=== PATIENT | male | born 1970 | race Caucasian/White ===

== ENCOUNTER 2020-03-18 10:19 | Observation (INO) | payer OTHER, SELFPAY ==
[2020-03-18] VITALS (9 sets, daily range): BP systolic 96–132; BP diastolic 63–92; PULSE 78–95; RESP 15–22; TEMP 36.4–36.8; O2SAT 90–96; BMI 28.8
--- NOTE | 2020-03-18 10:39 | XRR_ITS ---
PROCEDURE INFORMATION: Exam: XR Chest, 1 View Exam date and time: 03/18/2020 11:03 AM Age: 49 years old Clinical indication: Other: Chest tightness; Additional info: Chest pain TECHNIQUE: Imaging protocol: XR of the chest Views: 1 view. COMPARISON: No relevant prior studies available. FINDINGS: Lungs: Unremarkable. No consolidation. Pleural space: Unremarkable. No pleural effusion. No pneumothorax. Heart/Mediastinum: Unremarkable. No cardiomegaly. Bones/joints: Unremarkable. XR/XR chest 1V portable [id number] IMPRESSION: No acute findings.
[2020-03-18] MEDS: nitroglycerin 1 gm/inch oint Pkt 0.5 INCH TOPICAL (10:55)
[2020-03-18] MEDS: aspirin 81 mg Chew Tablet 324 MG PO (10:55)
[2020-03-18 10:59] LABS: Basophils # 0.1 10^3/uL (0.0-0.1); Basophils % 1.3 %; Eosinophils # 0.1 10^3/uL (0.0-0.8); Hematocrit 44.3 % (42.0-52.0); Hemoglobin 14.8 g/dL (11.7-16.6); Lymphocytes # 1.5 10^3/uL (0.8-4.8); Mean Corpuscular HGB Conc 33.4 g/dL (30.0-36.0); Mean Corpuscular Hemoglobin 31.2 pg (28.0-34.0); Mean Corpuscular Volume 93.3 fL (80-94); Mean Platelet Volume 10.3 fL (7.4-10.4); Monocytes # 0.5 10^3/uL (0.2-0.9); Monocytes % 9.1 %; Neutrophils # 3.4 10^3/uL (1.8-7.7); Neutrophils % 60.4 %; Nucleated Red Blood Cells % 0 %; Platelet Count 294 10^3/cmm (130-400); Red Blood Count 4.75 10^6/uL (4.1-5.3); Red Cell Distribution Width 12.2 % (12.1-15.1); White Blood Count 5.6 10^3/uL (4.0-10.0)
[2020-03-18 11:19] LABS: Alanine Aminotransferase 38 U/L (0-41); Albumin Level 4.4 g/dL (3.5-5.2); Alkaline Phosphatase 65 IU/L (40-130); Anion Gap 17.2 (5-19); Aspartate Amino Transferase 17 U/L (0-40); Blood Urea Nitrogen 21 mg/dL (6-20); Calcium 9.5 mg/dL (8.5-10.5); Carbon Dioxide 23 mmol/L (22-29); Chloride 102 mmol/L (98-107); Glomerular Filtration Rate 120.4 mL/min (90-130); Glucose 377 mg/dL (65-115); Osmolality Calculated 298 mOsm/kg (285-295); Potassium 4.2 mmol/L (3.5-5.1); Sodium 138 mmol/L (136-145); Total Bilirubin 0.3 mg/dL (0.15-1.2); Total Protein 6.4 g/dL (6.6-8.7)
[2020-03-18 11:24] LABS: Troponin(5th) Baseline 6 ng/L (0-15)
--- NOTE | 2020-03-18 11:52 | ED_ITS ---
HPI - Chest Pain General: Chief Complaint: Chest Pain Stated Complaint: chest heaviness Time Seen by Provider: 03/18/20 10:38 History of Present Illness: HPI narrative: Pleasant 49-year-old male who comes in complaining of an episode of chest heaviness or pressure. He was extremely diaphoretic and the pain radiated into his left shoulder lasted for about 4 to 5 minutes he was breathing rapidly at the time he states he did feel little bit anxious. He states that at the worst the pain was a 7-8 of 10 when he arrived here to 2-3 out of 10. He has been having these episodes previously however over the last 6 months when he walks for a period of time at times he will get rather severe chest heaviness to the point that he has to stop what he is doing and rest and it will resolve in a few minutes he is not had any work-up for it unfortunately he is a diabetic he is not been taking aspirin. He has no known coronary artery disease. He denies any recent illness or cough or upper respiratory symptoms. Associated symptoms: Deny abdominal pain, dyspnea, fever(s), nausea or vomiting Review of Systems Const: Denies: fever(s), chills, body aches, change in appetite, fatigue or malaise ENMT: Denies: throat pain, ear or mastoid pain, nasal discharge or nasal congestion Card: Reports: chest pain and dyspnea on exertion; Denies: edema or orthopnea Resp: Denies: dyspnea, productive cough or non-productive cough GI: Denies: abdominal pain, nausea, vomiting, hematemesis, coffee ground emesis, diarrhea, constipation, bloating, hematochezia or melena : Denies: flank pain, dysuria, urinary frequency or urinary urgency Skin/Breast: Denies: rash or pruritus [facility] ED PFSH: Medical History Diabetes -A1c-10.5 -continue Lantus, ISS, hypoglycemia precautions -Accucheks -on consistent carb diet Hyperlipidemia -noted lipid panel -continue statin Surgical History History of appendectomy Family History Grandfather CAD (coronary artery disease) Stroke Mother Cancer colon cancer Social History Smoking and tobacco status: never smoked Alcohol intake: never Household members: family Marital status: Current occupational status: employed Current occupation: [employer] Physical Exam Const: COMMON NORMALS: no acute distress GENERAL APPEARANCE: cooperative and comfortable ORIENTATION/CONSCIOUSNESS: Yes awake, Yes oriented to person, Yes oriented to place and Yes oriented to time HENMT: COMMON NORMALS: normocephalic, atraumatic, hearing grossly normal bilaterally, external ears normal, EAC's normal, TM's normal bilaterally, Normal nasal mucous membranes and turbinates present, moist oral mucous membranes and oropharynx normal HEAD & SCALP: normocephalic and atraumatic NOSE: Normal nasal mucous membranes and turbinates present EXTERNAL EAR: Yes external ears normal EXTERNAL AUDITORY CANAL: EAC's normal TYMPANIC MEMBRANE: TM's normal bilaterally Eye: COMMON NORMALS: Equal, round and reactive pupils present, EOMs intact bilaterally, conjunctivae normal and no scleral icterus CONJUNCTIVA: Yes conjunctivae normal PUPIL: Yes Equal, round and reactive pupils present Neck/C-Spine: COMMON NORMALS: full ROM, no lymphadenopathy, supple and no JVD Lymph: LYMPHATIC: no lymphadenopathy noted and no lymphedema noted Resp: COMMON NORMALS: normal respiratory effort, No retractions, No use of accessory muscles and clear to auscultation bilaterally AUSCULTATION: clear to auscultation bilaterally Cardio: COMMON NORMALS: no JVD, regular rate, regular rhythm and No murmurs present (Cardio) RATE: regular rate RHYTHM: regular rhythm GI: COMMON NORMALS: Soft to palpation and No hepatosplenomegaly present AUSCULTATION: Yes normoactive bowel sounds PALPATION: Yes Soft to palpation, No Tenderness to palpation present (GI), No Guarding due to palpation present (GI) and Yes No hepatosplenomegaly present Extremity: COMMON NORMALS: normal to inspection, capillary refill normal, no clubbing, cyanosis or edema, no calf tenderness and no pedal edema Neuro: SENSORIUM/ORIENTATION: Yes oriented to person, Yes oriented to place and Yes oriented to time Skin: COMMON NORMALS: no rashes or lesions noted GENERAL SKIN EXAM: no rashes or lesions noted Course Vital Signs: Vital signs: Vital Signs Temperature 98.1 F 03/19/20 13:15 Pulse Rate 91 03/19/20 13:15 Respiratory Rate 14 03/19/20 13:15 Blood Pressure 102/68 03/19/20 13:15 Pulse Oximetry 96 03/19/20 13:15 MDM - Chest Pain Lab Data: Labs: Lab Results 03/18/20 03/18/20 03/18/20 Range/Units 10:50 10:50 10:50 WBC 5.6 (4.0-10.0) 10^3/ uL RBC 4.75 (4.1-5.3) 10^6/u L Hgb 14.8 (11.7-16.6) g/dL Hct 44.3 (42.0-52.0) % MCV 93.3 (80-94) fL MCH 31.2 (28.0-34.0) pg MCHC 33.4 (30.0-36.0) g/dL RDW 12.2 (12.1-15.1) % Plt Count 294 (130-400) 10^3/c mm MPV 10.3 (7.4-10.4) fL Neut % (Auto) 60.4 % Lymph % (Auto) 27.0 % Morrison % (Auto) 9.1 % Eos % (Auto) 2.0 % Baso % (Auto) 1.3 % Neut # (Auto) 3.4 (1.8-7.7) 10^3/u L Lymph # (Auto) 1.5 (0.8-4.8) 10^3/u L Morrison # (Auto) 0.5 (0.2-0.9) 10^3/u L Eos # (Auto) 0.1 (0.0-0.8) 10^3/u L Baso # (Auto) 0.1 (0.0-0.1) 10^3/u L Nucleated RBC % (a uto) 0 % Nucleated RBCs # 0.0 /100WBC Sodium 138 (136-145) mmol/L Potassium 4.2 (3.5-5.1) mmol/L Chloride 102 (98-107) mmol/L Carbon Dioxide 23 (22-29) mmol/L Anion Gap 17.2 (5-19) BUN 21 H (6-20) mg/dL Creatinine 0.7 (0.7-1.2) mg/dL GFR Calculation 120.4 (90-130) mL/min Glucose 377 H (65-115) mg/dL Calculated Osmolal ity 298 H (285-295) mOsm/k g Calcium 9.5 (8.5-10.5) mg/dL Total Bilirubin 0.3 (0.15-1.2) mg/dL AST 17 (0-40) U/L ALT 38 (0-41) U/L Alkaline Phosphata se 65 (40-130) IU/L Troponin T Baselin e 6 (0-15) ng/L Total Protein 6.4 L (6.6-8.7) g/dL Albumin 4.4 (3.5-5.2) g/dL Globulin 2.0 (1.3-4.6) g/dL Discharge Plan Discharge Patient Disposition: Admitted As Inpatient Admit Provider: Lizz Gonzalez Clinical Impression: Unstable angina, Diabetes, Hyperlipidemia, Chest pain Condition: Stable Discharge Orders: Discharge Order (Routine); Ordered 03/19/20 Ordered By: Lizz Gonzalez Discharge Diet: Diabetic Discharge Activity: Increase activity as tolerated Interventions: ED Discharge Assessment Last Done: 03/18/20 14:58 ED Charges Last Done: 03/18/20 14:58 Discharge Date/Time: 03/18/20 15:10 Coding Level of Care Code ED Deck Builder for Chg Fwd Exam Comprehensive
[2020-03-18] MEDS: enoxaparin 100 mg/mL Syringe SUBCUT ×2 (12:34→23:07)
--- NOTE | 2020-03-18 12:39 | ECG_ITS ---
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 Measurements Intervals [place] Rate: 89 P: 46 NE: 159 QRS: 32 QRSD: 85 T: 33 QT: 351 QTc: 427 Interpretive Statements SINUS RHYTHM Compared to ECG 03/18/2020 10:34:59 T-wave abnormality no longer present Electronically Signed On 03-19-2020 0:10:29 CDT by Juanjo Montero M.D. [email or web address].[email or web address] [email or web address]/store/NU/[id number] f
[2020-03-18 13:20] LABS: Troponin 5 2HR Delta 0 ABS# (0-10)
--- NOTE | 2020-03-18 13:39 | P.HP_ITS ---
Providers/Chief Complaint Admitting Physician: Lizz Gonzalez MD Primary Care Provider: Dr. Damien Brian Chief Complaint: chest heaviness History of Present Illness Percy Saldana is a 49 year old male with PMHx of IDDM type II, Hyperlipidemia; presents with c/o substernal chest pain that started acutely while he was driving out to one of the [facility] clinics. He describes an episode of substernal chest pressure, weight-like, that radiated to his left shoulder, with associated diaphoresis and a mild headache. He decided to drive to the ED for further evaluation and by the time he got here, pain had decreased and was resolved once NTG paste was applied. He details a hx over the past 4-5 months of intermittent chest pressure and discomfort with decreasing exertion like when he is walking to his mailbox, he has to stop partway and catch his breath before returning to the house. The episodes always happen with exertion, but not always with the same amount of exertion or activity. He states that he typically is hyperglycemic and denies any hypoglycemic episodes, is insulin-dependent, no recent A1c on record. Denies prior history of cardiac symptoms other than what is already detailed so has not had previous cardiac work-up including echo. He is a non-smoker, no history of alcohol use, noted family history of CAD and CVA in his grandparents. He is resting comfortably during my assessment in the ER. Work-up so far shows a normal CBC, normal chemistry other than noted hyperglycemia with a blood sugar of 377, BUN of 21 with a creatinine of 0.7, normal LFTs, negative troponin x1. Chest x-ray appears unremarkable. So far he has received full dose aspirin 325 mg, therapeutic dose of Lovenox and has Nitropaste in place. Vital signs are currently stable. In light of his symptoms and high suspicion for unstable angina I have requested cardiology evaluation and patient is being admitted for further work-up and management. Review of Systems Const: Reports: diaphoresis; Denies: fever(s), chills, change in appetite or fatigue Eyes: Denies: change in vision ENMT: Denies: odynophagia Card: Reports: chest pain (radiation to L shoulder) and dyspnea on exertion; Denies: palpitations, edema, swelling of feet/ankles, lightheadedness, syncope or pre-syncope Resp: Reports: other (hyperventilation); Denies: dyspnea, productive cough or non-productive cough GI: Denies: abdominal pain, nausea, vomiting, hematemesis, diarrhea or hematochezia : Denies: dysuria, urinary frequency or hematuria Musc: Denies: back pain Skin/Breast: Denies: rash Neuro: Denies: numbness in extremities, weakness in extremities, difficulty walking or dizziness Psych: Denies: anxiety Medications/Allergies Home Medications Medication Instructions Recorded Confirmed Last Taken Type atorvastatin 40 mg PO DAILY 03/18/20 03/18/20 03/17/20 History canagliflozin [Invokana] 300 mg PO DAILY 03/18/20 03/18/20 03/17/20 History insulin glargine [Lantus Solostar 25 unit SUBCUT DAILY 03/18/20 03/18/20 03/17/20 History U-100 Insulin] Allergies Allergy/AdvReac Type Severity Reaction Status Date / Time No Known Allergies Allergy Verified 03/18/20 10:31 PFSH Acute PFSH: Medical History Diabetes Hyperlipidemia Surgical History History of appendectomy Family History Grandfather CAD (coronary artery disease) Stroke Mother Cancer colon cancer Social History (Updated 03/18/20 @ 13:49 by Lizz Gonzalez MD) Smoking and tobacco status: never smoked Alcohol intake: never Substance/Drug Use: never Household members: family Marital status: Current occupational status: employed Current occupation: [employer] [place] Vitals/I&O/Wt Last Vital Signs Temp 98.2 F 03/18/20 10:30 Pulse 82 03/18/20 12:02 Resp 18 03/18/20 12:02 BP 112/92 03/18/20 12:02 Pulse Ox 94 03/18/20 12:02 Weight last 48 hrs Weight 93.894 kg Physical Exam Const: COMMON NORMALS: no acute distress, patient oriented x3 and alert GENERAL APPEARANCE: cooperative and comfortable ORIENTATION/CONSCIOUSNESS: Yes awake HENMT: COMMON NORMALS: normocephalic, atraumatic, hearing grossly normal bilaterally and moist oral mucous membranes HEAD & SCALP: normocephalic and atraumatic Eye: COMMON NORMALS: Equal, round and reactive pupils present, EOMs intact bilaterally and conjunctivae normal CONJUNCTIVA: Yes conjunctivae normal PUPIL: Yes Equal, round and reactive pupils present Neck/C-Spine: COMMON NORMALS: full ROM GENERAL: Yes normal visual inspection and Yes trachea midline Chest: COMMONS NORMALS: normal palpation of entire chest wall CHEST: Yes Symmetrical chest wall rise Resp: COMMON NORMALS: normal respiratory effort, No retractions, No use of accessory muscles and clear to auscultation bilaterally EFFORT & INSPECTION: Yes able to speak in complete sentences, Yes symmetric chest movement and No tachypneic AUSCULTATION: clear to auscultation bilaterally OTHER: -on RA Cardio: COMMON NORMALS: regular rate, regular rhythm, S1 normal heart sound present, S2 normal heart sound present and No murmurs present (Cardio) RATE: regular rate RHYTHM: regular rhythm HEART SOUNDS: S1 normal heart sound present and S2 normal heart sound present GI: COMMON NORMALS: Normal to inspection, nondistended, normoactive bowel sounds present, Soft to palpation and non-tender INSPECTION: Yes central obesity PALPATION: Yes Soft to palpation Back/Pelvis: COMMON NORMALS: thoracic and lumbar spine normal to inspection Extremity: COMMON NORMALS: normal to inspection, full ROM, no clubbing, cyanosis or edema and no pedal edema Neuro: COMMON NORMALS: patient oriented x3, moves all extremities, no focal motor deficits and no sensory deficits noted Psych: COMMON NORMALS: mental status grossly normal, Normal thought process present, cooperative, normal affect and speech normal SPEECH: Yes normal speech THOUGHT PROCESS: Normal thought process present Skin: COMMON NORMALS: no rashes or lesions noted, no jaundice, no petechiae and no mottling GENERAL SKIN EXAM: no rashes or lesions noted Data : 03/18/20 10:50 03/18/20 10:50 A&P Assessment and plan (1) Unstable angina: -from history provided, seems more consistent with unstable angina (previously had intermittent chest pain with exertion but earlier today had typical substernal chest pain at rest with associated diaphoresis and radiation to the left shoulder) -Risk factors for ACS include diabetes, hyperlipidemia, positive family history -serial troponins, ECGs -telemetry monitoring -MARIAH; already received ASA 325 mg, therapeutic dose of Lovenox and NTG paste; continue this for now -VSS; continue to monitor vital signs -Cardiology consult requested -check A1c, lipid panel, TSH -resume statin -CXR unremarkable -no prior cardiac workup; order baseline Echo Status: Acute (2) Borderline hypertension: -VSS; continue to monitor Status: Acute (3) Hyperlipidemia: -check lipid panel -resume statin Status: Chronic Qualifiers: Hyperlipidemia type: unspecified Qualified Code(s): E78.5 - Hyperlipidemia, unspecified (4) Diabetes: -check A1c -resume Lantus, add ISS, hypoglycemia precautions -Accucheks -once PO appropriate, start on consistent carb diet Status: Acute Qualifiers: Diabetes mellitus type: type 2 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 Time Spent in Patient Care: Greater than 35 minutes (>than 50% of time spe nt in counselling and/or direct pt care on unit) . Coding Level of Care Code Acute Life Teacher for Aprilg Fwd Diagnoses Unstable angina I20.0 Borderline hypertension R03.0 Hyperlipidemia E78.5 Hyperlipidemia type: unspecified Diabetes E11.9; Z79.4 Diabetes mellitus type: type 2 Diabetes mellitus residential insulin use: with residential use Diabetes mellitus complication status: without complication
--- NOTE | 2020-03-18 15:10 | USCV_ITS ---
LesPercy Age: 49 Gender: M : 1970 Exam Date: 03/18/2020 15:37 Ordering Phys: Lizz Gonzalez MD Technologist: Demetris Noland [place] [facility] [place]ication: CHEST PAIN BP: 82 / 67 HR: 78 Rhythm: Sinus Technical Quality: Fair MEASUREMENTS (Male / Female) Normal Values 2D ECHO LV Diastolic Diameter PLAX 4.4 cm 4.2 - 5.9 / 3.9 - 5.3 cm LV Systolic Diameter PLAX 2.6 cm IVS Diastolic Thickness 1.1 cm 0.6 - 1.0 / 0.6 - 0.9 cm IVS Systolic Thickness 1.3 cm LVPW Diastolic Thickness 0.9 cm 0.6 - 1.0 / 0.6 - 0.9 cm LVPW Systolic Thickness 1.5 cm LVOT Diameter 2.0 cm LV Ejection Fraction 2D Teich 71.1 % LV Ejection Fraction MOD 2C 58.2 % LV Ejection Fraction 2C AL 59.8 % LA Diameter 3.5 cm LA Width 3.7 cm LA Height 5.0 cm RA Width 4.0 cm RA Height 4.6 cm M-MODE LV Diastolic Diameter MM 4.1 cm 4.2 - 5.9 / 3.9 - 5.3 cm LV Systolic Diameter MM 2.9 cm LV Ejection Fraction MM Teich 55.1 % IVS Diastolic Thickness MM 1.0 cm 0.6 - 1.0 / 0.6 - 0.9 cm IVS Systolic Thickness MM 1.0 cm LVPW Diastolic Thickness MM 1.2 cm 0.6 - 1.0 / 0.6 - 0.9 cm LVPW Systolic Thickness MM 1.6 cm RV Diastolic Diameter MM 1.9 cm Aortic Annulus Diameter 2.9 cm LA Ao Ratio MM 1.2 MV E Point Septal Separation 0.8 cm DOPPLER AV Peak Velocity 104.0 cm/s LVOT Peak Velocity 83.0 cm/s AV Area Cont Eq vti 3.3 cm squared AV Area Cont Eq pk 2.6 cm squared MV Area PHT 4.0 cm squared Mitral E to A Ratio 0.8 MV E' Velocity 8.0 cm/s Mitral E to LV E' Lateral Ratio 6.5 TR Peak Velocity 129.0 cm/s TR Peak Gradient 6.6 mmHg TV Peak E Velocity 68.0 cm/s Right Atrial Pressure 3.0 mmHg Pulmonary Artery Systolic Pressu 9.7 mmHg FINDINGS Left Ventricle Normal left ventricular size, systolic function and wall thickness, with no regional wall motion abnormalities. Left ventricular ejection fraction is estimated at 63 %. Normal diastolic function. Right Ventricle Normal right ventricular size and systolic function. Right ventricular systolic pressure 9.7 mmHg. Right Atrium Normal right atrial size. Left Atrium Normal left atrial size. Mitral Valve Structurally normal mitral valve. No mitral valve stenosis. Trace mitral valve regurgitation. Aortic Valve Structurally normal trileaflet aortic valve. No aortic valve stenosis. No aortic valve regurgitation. Tricuspid Valve Structurally normal tricuspid valve. Trace tricuspid valve regurgitation. Pulmonic Valve Structurally normal pulmonic valve. Trace pulmonary valve regurgitation. Pericardium No pericardial effusion. Aorta Normal size aortic root and proximal ascending aorta. CONCLUSIONS 1. Normal left ventricular size, systolic function and wall thickness, with no regional wall motion abnormalities. Left ventricular ejection fraction is estimated at 63 %. Normal diastolic function. 2. Normal right ventricular size and systolic function. 3. No significant valvular abnormality. 4. Normal pulmonary artery pressure. 5. No prior similar studies to compare. Carlee Jaffe MD (Electronically Signed) Final Date: 18 March 2020 17:07 S
--- NOTE | 2020-03-18 16:39 | ECG_ITS ---
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 Measurements Intervals [place] Rate: 95 P: 51 [place]: 161 QRS: 36 QRSD: 86 T: 32 QT: 330 QTc: 416 Interpretive Statements SINUS RHYTHM NONSPECIFIC T-WAVE ABNORMALITY No previous ECG available for comparison Electronically Signed On 03-19-2020 0:09:36 CDT by Juanjo Montero M.D. [id number]
[2020-03-18 17:02] LABS: Glucose Point of Care 153 mg/dL (70-110)
--- NOTE | 2020-03-18 17:10 | PM.CONSULT ---
Providers/Reason For Consult Consulting Physican/Specialty*: Dr. Jaffe, Cardiology Reason for Consult*: Chest pain Attending Physician: Lizz Gonzalez MD History of Present Illness History of Present Illness Percy Saldana is a 49 year old male with PMHx of insulin dependant DM type II x 4-5 years (HbA1C~11), hyperlipidemia who presented to the hospital with c/o retrosternal chest pain described as someone sitting on chest with radiation to left shoulder It started while he was driving out to one of the [facility] clinics. He turned around and drove to the ER for further evaluation and by the time he got here, pain had decreased and was resolved once NTG paste was applied. About 5-6 months back, he describes intermittent chest pressure with exertion. These episode did not happen every day but occasionally while walking to his mailbox, he noticed that he had stopto catch his breath. He denies any prior history of CO/CAD or previous cardiac work-up. He is a non-smoker, no history of alcohol use with no family h/o premature CAD. He is resting comfortably and is chest pain free at the time of examination. Chest x-ray appears unremarkable. Troponin T x 2 were WNL. I have been asked to evaluate and assist in further management. Review of Systems Const: Denies: fever(s), chills, change in appetite, change in weight, fatigue or malaise ENMT: Denies: throat pain, swelling of lips/tongue, oral sores or epistaxis Card: Reports: chest pain; Denies: palpitations, irregular heart rhythm, edema, lightheadedness, syncope, dyspnea on exertion, orthopnea or leg pain with exertion Resp: Denies: dyspnea, productive cough, wheezing or hemoptysis GI: Denies: abdominal pain, nausea, vomiting, hematemesis, heartburn, diarrhea, constipation, change in bowel habits, hematochezia or melena : Denies: dysuria, oliguria or hematuria Musc: Denies: back pain, extremity swelling, joint pain or muscle weakness Skin/Breast: Denies: rash Neuro: Denies: numbness in extremities, weakness in extremities, lack of coordination, difficulty walking, dizziness, vertigo or confusion Psych: Denies: anxiety, depression or irritability Endo: Denies: tired all the time Mele/Lymph: Denies: easy bruising or easy bleeding All/Imm: Denies: throat swelling or tongue swelling Meds/Allergies Home Medications and Allergies Home Medications Medication Instructions Recorded Confirmed Last Taken Type atorvastatin 40 mg PO DAILY 03/18/20 03/18/20 03/17/20 History canagliflozin [Invokana] 300 mg PO DAILY 03/18/20 03/18/20 03/17/20 History insulin glargine [Lantus Solostar 25 unit SUBCUT DAILY 03/18/20 03/18/20 03/17/20 History U-100 Insulin] Allergies Allergy/AdvReac Type Severity Reaction Status Date / Time No Known Allergies Allergy Verified 03/18/20 10:31 PFSH Acute PFSH: Medical History Diabetes Hyperlipidemia Surgical History History of appendectomy Family History Grandfather CAD (coronary artery disease) Stroke Mother Cancer colon cancer Social History Smoking and tobacco status: never smoked Alcohol intake: never Substance/Drug Use: never Household members: family Marital status: Current occupational status: employed Current occupation: [employer] [facility] Vitals/I&O/Wt Last Vital Signs Temp 97.5 F L 03/18/20 16:56 Pulse 86 03/18/20 16:56 Resp 18 03/18/20 16:56 BP 96/66 03/18/20 16:56 Pulse Ox 93 03/18/20 16:56 Weight last 48 hrs Weight 207 lb Physical Exam Const: COMMON NORMALS: no acute distress, average body habitus, patient oriented x3, alert and well nourished GENERAL APPEARANCE: cooperative, comfortable, well kempt and well developed ORIENTATION/CONSCIOUSNESS: Yes oriented to person, Yes oriented to place and Yes oriented to time HENMT: COMMON NORMALS: normocephalic, atraumatic, hearing grossly normal bilaterally and external ears normal HEAD & SCALP: normocephalic and atraumatic FACE & SINUS: face symmetric EXTERNAL EAR: Yes external ears normal Eye: COMMON NORMALS: Equal, round and reactive pupils present, EOMs intact bilaterally and conjunctivae normal ALIGNMENT: Yes alignment normal CONJUNCTIVA: Yes conjunctivae normal PUPIL: Yes Equal, round and reactive pupils present Neck/C-Spine: COMMON NORMALS: supple and no JVD; negative for No carotid bruits Resp: COMMON NORMALS: clear to auscultation bilaterally AUSCULTATION: clear to auscultation bilaterally, no crackles, no rales, no rhonchi and no wheezes Cardio: COMMON NORMALS: no JVD, regular rate, regular rhythm, S1 normal heart sound present, S2 normal heart sound present and Peripheral pulses 2+ throughout; negative for No gallops present (Cardio) JUGULAR VENOUS DISTENTION: no JVD PALPATION: normal PMI, no palpable S3 and no thrill RATE: regular rate RHYTHM: regular rhythm HEART SOUNDS: S1 normal heart sound present, S2 normal heart sound present, no gallops and no murmurs BRUITS: no carotid bruits PERIPHERAL PULSES: Peripheral pulses 2+ throughout GI: COMMON NORMALS: Normal to inspection, nondistended, normoactive bowel sounds present, Soft to palpation and non-tender PALPATION: Yes Soft to palpation RECTAL EXAM: Yes deferred Neuro: COMMON NORMALS: patient oriented x3, no focal motor deficits and gait normal SENSORIUM/ORIENTATION: Yes alert, Yes oriented to person, Yes oriented to place and Yes oriented to time Psych: COMMON NORMALS: Normal thought process present APPEARANCE: Yes well kempt MOOD & AFFECT: Yes euthymic mood THOUGHT PROCESS: Normal thought process present THOUGHT CONTENT: Yes Normal thought content present INSIGHT: Good insight present (Psych) JUDGEMENT: Good judgement present (Psych) A&P Assessment and plan (1) Chest pain: CAD risk factor of poorly controlled DM and HLD, non specific T wave changes on EKG, troponin T x 2 negative. -I will plan for exercise MPI in morning for further risk startification. -continue ASA, statin and NTG as needed. -Normal LV function with no diagnostic RWMA. Status: Acute Qualifiers: Chest pain type: unspecified Qualified Code(s): R07.9 - Chest pain, unspecified (2) Borderline hypertension: Status: Acute (3) Hyperlipidemia: Status: Chronic Qualifiers: Hyperlipidemia type: unspecified Qualified Code(s): E78.5 - Hyperlipidemia, unspecified (4) Diabetes: Status: Acute Qualifiers: Diabetes mellitus type: type 2 Diabetes mellitus exterminator helper termite insulin use: with exterminator helper termite use Diabetes mellitus complication status: without complication Qualified Code(s): E11.9 - Type 2 diabetes mellitus without complications; Z79.4 - long-term (current) use of insulin Additional A&P Information Thank you for allowing me to participate in patient;s care. Please feel free to call with questions or concerns. Coding Level of Care Code Acute Business Programmer for [facility] Fwd Diagnoses Chest pain R07.9 Chest pain type: unspecified Borderline hypertension R03.0 Hyperlipidemia E78.5 Hyperlipidemia type: unspecified Diabetes E11.9; Z79.4 Diabetes mellitus type: type 2 Diabetes mellitus exterminator helper termite insulin use: with exterminator helper termite use Diabetes mellitus complication status: without complication
[2020-03-18 17:17] LABS: Troponin 5 6HR Delta 0 ng/L (0-12)
--- NOTE | 2020-03-18 18:58 | PC.NURSE ---
Received bedside report from Mary Fulton RN. Patient resting in bed. Denies any pain or discomforts this evening. Discussed plan for Treadmill stress on 03/19. He informed staff that his will bring his tennis shoes so he will be prepared for his test. Instructed patient on NPO status and he verbalized complete understanding.
[2020-03-18 20:29] LABS: Glucose Point of Care 203 mg/dL (70-110)
[2020-03-18] MEDS: insulin glargine 100 units/1 mL 20 UNIT SUBCUT (20:55)
[2020-03-18] MEDS: dextrose 5%-sod chloride 0.45% 1,000 ML 75 ML IV (21:02)
--- NOTE | 2020-03-18 23:09 | PC.NURSE ---
Administered Lovenox as ordered. Discussed with patient uses and side effects of medications. Patient verbalized understanding.
[2020-03-19] VITALS: BP 105/60; PULSE 84; RESP 17; O2SAT 95
[2020-03-19 03:26] VITALS: BP 101/64; PULSE 82; RESP 16; TEMP 36.9; O2SAT 93
[2020-03-19 03:55] LABS: Basophils # 0.1 10^3/uL (0.0-0.1); Basophils % 0.8 %; Eosinophils # 0.2 10^3/uL (0.0-0.8); Eosinophils % 2.1 %; Hematocrit 45.4 % (42.0-52.0); Hemoglobin 14.7 g/dL (11.7-16.6); Lymphocytes # 1.8 10^3/uL (0.8-4.8); Lymphocytes % 25.3 %; Mean Corpuscular HGB Conc 32.4 g/dL (30.0-36.0); Mean Corpuscular Hemoglobin 31.3 pg (28.0-34.0); Mean Corpuscular Volume 96.6 fL (80-94); Monocytes # 0.6 10^3/uL (0.2-0.9); Monocytes % 7.7 %; Neutrophils # 4.6 10^3/uL (1.8-7.7); Neutrophils % 63.8 %; Nucleated Red Blood Cells % 0 %; Platelet Count 286 10^3/cmm (130-400); Red Cell Distribution Width 12.4 % (12.1-15.1); White Blood Count 7.2 10^3/uL (4.0-10.0)
[2020-03-19 04:15] LABS: Alanine Aminotransferase 34 U/L (0-41); Albumin Level 4.1 g/dL (3.5-5.2); Alkaline Phosphatase 59 IU/L (40-130); Anion Gap 16.8 (5-19); Aspartate Amino Transferase 19 U/L (0-40); Blood Urea Nitrogen 17 mg/dL (6-20); Carbon Dioxide 26 mmol/L (22-29); Chloride 102 mmol/L (98-107); Globulin 2.6 g/dL (1.3-4.6); Glomerular Filtration Rate 120.4 mL/min (90-130); Glucose 191 mg/dL (65-115); Osmolality Calculated 294 mOsm/kg (285-295); Potassium 3.8 mmol/L (3.5-5.1); Sodium 141 mmol/L (136-145); Total Bilirubin 0.2 mg/dL (0.15-1.2); Total Protein 6.7 g/dL (6.6-8.7)
[2020-03-19 04:18] LABS: Cholesterol 133 mg/dL (0-200); HDL Cholesterol 35 mg/dL (60-100); LDL Cholesterol Calculated 65 mg/dL (50-129); LDL HDL Ratio 1.86 RATIO (0.00-3.22); Triglycerides 164 mg/dL (0-150)
[2020-03-19 05:29] LABS: Estmated Average Glucose 255; Hemoglobin A1C 10.5 % (4.0-6.0)
--- NOTE | 2020-03-19 06:00 | ECG_ITS ---
[facility] Test Date: 2020-03-19 Pat Name: Percy Saldana Department: Room: 104 Gender: Male Bench Assembler: : 1970 Requested By: Lizz Gonzalez Order Number: [id number] Rollins MD: Carlee Jaffe M.D. Interpretive Statements NAME OF STUDY: TREADMILL STRESS TEST INDICATION: Chest Pain Baseline blood pressure of 112/74 mm Hg, heart rate 87 beats per minute and oxygen saturation 94%. EKG showed sinus tachycardia, normal axis with nonspecific T wave changes in lead III. The patient exercised for 7 minutes 10 seconds on a standard James protocol. Patient attained a maximum heart rate of 148 beats per minute(86 % of the maximum predicted heart rate) with a blood pressure at the peak exercise of 174/77 mm Hg and oxygen saturation 96%. The EKG at the peak exercise revealed sinus tachycardia with no significant ST-T wave changes. Patient did not have any chest pain or any significant arrhythmis with the exercise. Procedure was stopped because of fatigue During the recovery phase, there were no new changes. Blood pressure at the end of the recovery phase was 105/72 mm Hg with a heart rate of 102 beats per minute and oxygen saturation 95%. CONCLUSION: 1. Normal EKG response to treadmill exercise. 2. No exercise-induced chest pain or cardiac arrhythmia 3. Fair exercise tolerance, attained a maximum of 10.2 METs. [place] treadmill score of 5. Maximum VO2 of 35.7 mL/kg/min. 4. Baseline normal blood pressure with normal response to exercise. Electronically Signed On 03-19-2020 10:20:03 CDT by Carlee Jaffe M.D. [id number]
[2020-03-19 06:19] LABS: Glucose Point of Care 153 mg/dL (70-110)
--- NOTE | 2020-03-19 07:00 | PC.NURSE ---
Bedside report with two nurses. Patient resting comfortably in bed, no requests at this time.
[2020-03-19 08:13] VITALS: BP 98/77; PULSE 94; RESP 14; TEMP 36.8; O2SAT 93
[2020-03-19 08:32] VITALS: BP 109/73; PULSE 95
[2020-03-19] MEDS: atorvastatin 40 mg Tablet PO (08:50)
[2020-03-19] MEDS: dextrose 5%-sod chloride 0.45% 1,000 ML 75 ML IV (08:54)
--- NOTE | 2020-03-19 09:50 | PC.CHAP ---
Pastoral Care Encounter/Spiritual Assessment Type of Contact [] Declined water meter mechanic visit [] Patient/Family/Request visit [] Outpatient visit [] Follow-up visit [] Physician referral [] Code/Alert [x] Routine visit [] Staff referral [] Actively dying [] Patient sleeping [] Family support [] [] Out of room [] Palliative care [] [] Receiving care in room [] Pre-surgical visit [] Trauma [] Long length of stay [] ICU visit [] Other: Relational/Emotional Strength [] Patient feels connected with others/family/visitors/staff [] Distress [] Loneliness/isolation [] Abandonment Spirituality of Patient [] Person of [place] [] Attends Episcopalian of their [place] [] Believes in Prayer [] Reads Bible or Baptist materials [] There are Spiritual issues to be addressed Spectrograph Operator Interventions [x] Prayer [x] Active listening [x] Non-anxious presence [x] Spiritual/emotional support [] Crisis/trauma care [] Spiritual counseling [] Bereavement support [] Provided bereavement packet [] Provided Bible/devotional materials [] Provided toy/stuffed animal, coloring book to patient or family member [] Provided Communion [] Anointing/[place] [] Salvation [x] Completed spiritual assessment [] Other: Impact on Illness or Injury [] Angry [] Fearful [] Anxious [] Often cries [] Exhaustion [] Unable to work [] Unable to attend taoism [] Unable to walk/stand [] Unable to read [] Unable to drive [] Unable to eat/drink [] Unable to sleep [] Unable to be with family [] Patient intubated [] Other: Summary Patient rested well, feeling stronger. Looking forward to returning home. Time spent with patient 10 min
[2020-03-19 11:17] LABS: Glucose Point of Care 223 mg/dL (70-110)
--- NOTE | 2020-03-19 11:25 | P.DS_ITS ---
Discharge Providers Date of Admission: 03/18/20 12:50 Date of Discharge: March 19, 2020 Attending Provider at Admission: Lizz Gonzalez MD Attending Provider at Discharge: Lizz Gonzalez MD Primary Care Provider: Dr. Damien Brian Diagnoses at Discharge Discharge Diagnosis (1) Chest pain: Status: Acute Problem details: -from history provided, seems more consistent with unstable angina (previously had intermittent chest pain with exertion but earlier today had typical substernal chest pain at rest with associated diaphoresis and radiation to the left shoulder) -Risk factors for ACS include diabetes, hyperlipidemia, positive family history -serial troponins, ECGs -telemetry monitoring -MARIAH; already received ASA 325 mg, therapeutic dose of Lovenox and NTG paste; continue this for now -VSS; continue to monitor vital signs -Cardiology consult by Dr. Alannah kebede -noted A1c, lipid panel, TSH -on statin -CXR unremarkable -no prior cardiac workup; Echo: EF=63%, no RWMA, trace MR, trace TR, trace UT -stress testing negative Qualifiers: Chest pain type: unspecified Qualified Code(s): R07.9 - Chest pain, unspecified (2) Borderline hypertension: Status: Resolved Problem details: -VSS; continue to monitor (3) Hyperlipidemia: Status: Chronic Problem details: -noted lipid panel -continue statin Qualifiers: Hyperlipidemia type: unspecified Qualified Code(s): E78.5 - Hyperlipidemia, unspecified (4) Diabetes: Status: Chronic Problem details: -A1c-10.5 -continue Lantus, ISS, hypoglycemia precautions -Accucheks -on consistent carb diet Qualifiers: Diabetes mellitus complication status: without complication Diabetes mellitus intermediate insulin use: with intermediate use Diabetes mellitus type: type 2 Qualified Code(s): E11.9 - Type 2 diabetes mellitus without complications; Z79.4 - jail (current) use of insulin Reason for Visit Reason for Visit: chest heaviness Hospital Course Hospital Course: Patient was admitted to the cardiac stepdown unit and placed on telemetry monitoring. Due to concern for unstable angina he had cardiac work-up that consisted of echo and stress testing both of which were unremarkable as noted above. Troponins showed a flat trend with no significant delta. He has been hemodynamically stable, afebrile and on room air consistently. He was seen by cardiology and based on work-up results has been cleared for discharge today. Patient has been chest pain-free throughout his hospital stay. He is advised to seek medical attention immediately should any of his symptoms recur. Discharge Summary: -Patient to follow-up with Dr. Brian within 1 week Physical Exam Const: COMMON NORMALS: no acute distress, patient oriented x3 and alert GENERAL APPEARANCE: cooperative and comfortable ORIENTATION/CONSCIOUSNESS: Yes awake HENMT: COMMON NORMALS: normocephalic, atraumatic, hearing grossly normal bilaterally and moist oral mucous membranes HEAD & SCALP: normocephalic and atraumatic Eye: COMMON NORMALS: Equal, round and reactive pupils present, EOMs intact bilaterally and conjunctivae normal CONJUNCTIVA: Yes conjunctivae normal PUPIL: Yes Equal, round and reactive pupils present Neck/C-Spine: COMMON NORMALS: full ROM GENERAL: Yes normal visual inspection and Yes trachea midline Chest: COMMONS NORMALS: normal palpation of entire chest wall CHEST: Yes Symmetrical chest wall rise Resp: COMMON NORMALS: normal respiratory effort, No retractions, No use of accessory muscles and clear to auscultation bilaterally EFFORT & INSPECTION: Yes able to speak in complete sentences, Yes symmetric chest movement and No tachypneic AUSCULTATION: clear to auscultation bilaterally OTHER: -on RA Cardio: COMMON NORMALS: regular rate, regular rhythm, S1 normal heart sound present, S2 normal heart sound present and No murmurs present (Cardio) RATE: regular rate RHYTHM: regular rhythm HEART SOUNDS: S1 normal heart sound present and S2 normal heart sound present GI: COMMON NORMALS: Normal to inspection, nondistended, normoactive bowel sounds present, Soft to palpation and non-tender INSPECTION: Yes central obesity PALPATION: Yes Soft to palpation Back/Pelvis: COMMON NORMALS: thoracic and lumbar spine normal to inspection Extremity: COMMON NORMALS: normal to inspection, full ROM, no clubbing, cyanosis or edema and no pedal edema Neuro: COMMON NORMALS: patient oriented x3, moves all extremities, no focal motor deficits and no sensory deficits noted SENSORIUM/ORIENTATION: Yes alert Psych: COMMON NORMALS: mental status grossly normal, Normal thought process present, cooperative, normal affect and speech normal SPEECH: Yes normal speech THOUGHT PROCESS: Normal thought process present Skin: COMMON NORMALS: no rashes or lesions noted, no jaundice, no petechiae and no mottling GENERAL SKIN EXAM: no rashes or lesions noted Discharge Data Data Completed and Pending: Completed Studies During Hospitalization Category Date Time Status Cardiac Stress Te st Request Routine Exams 03/19/20 06:00 Completed XR chest 1V saira ble [id number] Stat Exams 03/18/20 10:39 Completed CV echo complete* [id number] Urgent Ultrasound 03/18/20 15:10 Completed Pending at discharge Category Date Time Status Cardiac Stress Te st Request Routine Exams 03/18/20 15:33 Stop Req Labs from last 24 hours 03/19/20 03/19/20 03/19/20 11:10 06:10 03:36 WBC RBC Hgb Hct MCV MCH MCHC RDW Plt Count MPV Neut % (Auto) Lymph % (Auto) [place] % (Auto) Eos % (Auto) Baso % (Auto) Neut # (Auto) Lymph # (Auto) [place] # (Auto) Eos # (Auto) Baso # (Auto) Nucleated RBC % (a uto) Nucleated RBCs # Sodium Potassium Chloride Carbon Dioxide Anion Gap BUN Creatinine GFR Calculation Glucose POC Glucose 223 153 Estimat Average Gl ucose Hemoglobin A1c Calculated Osmolal ity Calcium Total Bilirubin AST ALT Alkaline Phosphata se Troponin I 6 Hour Troponin I Hi Sens Del Troponin T 120 Min [place] Delta Troponin T Total Protein Albumin Globulin Triglycerides 164 H Cholesterol 133 LDL Cholesterol, C alc 65 HDL Cholesterol 35 L LDL/HDL Ratio 1.86 Cholesterol/HDL Ra vandana 3.80 TSH 03/19/20 03/19/20 03/19/20 03:36 03:36 03:36 WBC RBC Hgb Hct MCV MCH MCHC RDW Plt Count MPV Neut % (Auto) Lymph % (Auto) [place] % (Auto) Eos % (Auto) Baso % (Auto) Neut # (Auto) Lymph # (Auto) [place] # (Auto) Eos # (Auto) Baso # (Auto) Nucleated RBC % (a uto) Nucleated RBCs # Sodium 141 Potassium 3.8 Chloride 102 Carbon Dioxide 26 Anion Gap 16.8 BUN 17 Creatinine 0.7 GFR Calculation 120.4 Glucose 191 H POC Glucose Estimat Average Gl ucose 255 Hemoglobin A1c 10.5 H Calculated Osmolal ity 294 Calcium 9.0 Total Bilirubin 0.2 AST 19 ALT 34 Alkaline Phosphata se 59 Troponin I 6 Hour Troponin I Hi Sens Del Troponin T 120 Min [place] Delta Troponin T Total Protein 6.7 Albumin 4.1 Globulin 2.6 Triglycerides Cholesterol LDL Cholesterol, C alc HDL Cholesterol LDL/HDL Ratio Cholesterol/HDL Ra vandana TSH 1.80 03/19/20 03/18/20 03/18/20 03:36 20:19 16:45 WBC 7.2 RBC 4.70 Hgb 14.7 Hct 45.4 MCV 96.6 H MCH 31.3 MCHC 32.4 RDW 12.4 Plt Count 286 MPV 10.0 Neut % (Auto) 63.8 Lymph % (Auto) 25.3 [place] % (Auto) 7.7 Eos % (Auto) 2.1 Baso % (Auto) 0.8 Neut # (Auto) 4.6 Lymph # (Auto) 1.8 [place] # (Auto) 0.6 Eos # (Auto) 0.2 Baso # (Auto) 0.1 Nucleated RBC % (a uto) 0 Nucleated RBCs # 0.0 Sodium Potassium Chloride Carbon Dioxide Anion Gap BUN Creatinine GFR Calculation Glucose POC Glucose 203 153 Estimat Average Gl ucose Hemoglobin A1c Calculated Osmolal ity Calcium Total Bilirubin AST ALT Alkaline Phosphata se Troponin I 6 Hour Troponin I Hi Sens Del Troponin T 120 Min [place] Delta Troponin T Total Protein Albumin Globulin Triglycerides Cholesterol LDL Cholesterol, C alc HDL Cholesterol LDL/HDL Ratio Cholesterol/HDL Ra vandana TSH 03/18/20 03/18/20 16:35 13:00 WBC RBC Hgb Hct MCV MCH MCHC RDW Plt Count MPV Neut % (Auto) Lymph % (Auto) [place] % (Auto) Eos % (Auto) Baso % (Auto) Neut # (Auto) Lymph # (Auto) [place] # (Auto) Eos # (Auto) Baso # (Auto) Nucleated RBC % (a uto) Nucleated RBCs # Sodium Potassium Chloride Carbon Dioxide Anion Gap BUN Creatinine GFR Calculation Glucose POC Glucose Estimat Average Gl ucose Hemoglobin A1c Calculated Osmolal ity Calcium Total Bilirubin AST ALT Alkaline Phosphata se Troponin I 6 Hour 6.00 Troponin I Hi Sens Del 0 Troponin T 120 Min [place] 6.00 Delta Troponin T 0 Total Protein Albumin Globulin Triglycerides Cholesterol LDL Cholesterol, C alc HDL Cholesterol LDL/HDL Ratio Cholesterol/HDL Ra vandana TSH Vitals: Last Vital Signs Temp 98.3 F 03/19/20 08:13 Pulse 95 03/19/20 08:32 Resp 14 03/19/20 08:13 BP 109/73 03/19/20 08:32 Pulse Ox 93 03/19/20 08:13 Discharge Plan Discharge Patient Disposition: Home, Self-Care Condition: Stable Prescriptions: New Adult Aspirin Regimen 81 mg tablet,delayed release (DR/EC) 81 mg PO DAILY Qty: 30 RF: 0 Continued Lantus Solostar U-100 Insulin 100 unit/mL (3 mL) insulin pen 25 unit SUBCUT DAILY RF: 0 Invokana 300 mg tablet 300 mg PO DAILY RF: 0 Changed atorvastatin 40 mg tablet 40 mg PO BEDTIME 30 Days Qty: 30 RF: 0 Discharge Orders: Discharge Order (Routine); Ordered 03/19/20 Ordered By: Lizz Gonzalez Referrals: Damien Brian, DO [Family Provider] - 4-7 days (You have an follow-up appointment with Dr. Brian on Tuesday, March 26 at 9:00a.m. If you have any questions or need to reschedule. Please, call ) Discharge Diet: Diabetic Discharge Activity: Increase activity as tolerated Patient Instructions: Aspirin (By mouth), Chest Pain (DC), Chest Pain Stoplight Discharge Attestations Time Spent in Discharge Care*: greater than 30 min Specific Discharge Activities: Specific discharge activities: educating patient, documenting/other paperwork and evaluating patient/reviewing data Status at Discharge: Cognitive status at discharge: cognitively intact , Behavioral status at discharge: cooperative , Functional status at discharge: independent ambulation Overall status at discharge: patient is back to baseline Quality Metrics Clinical Quality Measures During this hospital stay, did patient experience: None Coding Level of Care Code Acute Dietary Clerk for g Fwd Exam Comprehensive Diagnoses Chest pain R07.9 Chest pain type: unspecified Borderline hypertension R03.0 Hyperlipidemia E78.5 Hyperlipidemia type: unspecified Diabetes E11.9; Z79.4 Diabetes mellitus complication status: without complication Diabetes mellitus intermediate insulin use: with manufacturing systems engineer use Diabetes mellitus type: type 2
[2020-03-19 11:35] VITALS: BP 102/68; PULSE 91; RESP 14; TEMP 36.7; O2SAT 96
--- NOTE | 2020-03-19 13:00 | PC.NURSE ---
Dr. Gonzalez at bedside. Physician approved patient for dc.
[2020-03-19 13:15] VITALS: BP 102/68; PULSE 91; RESP 14; TEMP 36.7; O2SAT 96
--- NOTE | 2020-03-19 13:36 | PC.NURSE ---
Discharge instructions given per the physician's orders. Patient verbalized understanding of information and did not have any further questions. Meds to beds being delivered. Patient has been contacted for discharge ride.
--- NOTE | 2020-03-19 14:08 | PM.PN ---
Subjective Subjective: Interval history: He did well overnight. No recurrent chest pains overnight. Medications: Reviewed: Yes Vitals/I&O/Wt Last Vital Signs Temp 98.1 F 03/19/20 13:15 Pulse 91 03/19/20 13:15 Resp 14 03/19/20 13:15 BP 102/68 03/19/20 13:15 Pulse Ox 96 03/19/20 13:15 03/18/20 03/19/20 03/19/20 22:59 06:59 14:59 Intake Total 600 / 600 2177.5 / 2177.5 Balance 600 / 600 2177.5 / 2177.5 Weight last 48 hrs Weight 207 lb Physical Exam Const: COMMON NORMALS: no acute distress, average body habitus, patient oriented x3, alert and well nourished GENERAL APPEARANCE: cooperative, comfortable, well kempt and well developed ORIENTATION/CONSCIOUSNESS: Yes oriented to person, Yes oriented to place and Yes oriented to time HENMT: COMMON NORMALS: normocephalic, atraumatic and external ears normal HEAD & SCALP: normocephalic and atraumatic FACE & SINUS: face symmetric EXTERNAL EAR: Yes external ears normal Eye: COMMON NORMALS: Equal, round and reactive pupils present, EOMs intact bilaterally and conjunctivae normal ALIGNMENT: Yes alignment normal CONJUNCTIVA: Yes conjunctivae normal PUPIL: Yes Equal, round and reactive pupils present Neck/C-Spine: COMMON NORMALS: supple and no JVD; negative for No carotid bruits Resp: COMMON NORMALS: clear to auscultation bilaterally AUSCULTATION: clear to auscultation bilaterally, no crackles, no rales, no rhonchi and no wheezes Cardio: COMMON NORMALS: no JVD, regular rate, regular rhythm, S1 normal heart sound present, S2 normal heart sound present and Peripheral pulses 2+ throughout JUGULAR VENOUS DISTENTION: no JVD PALPATION: normal PMI and no palpable S3 RATE: regular rate RHYTHM: regular rhythm HEART SOUNDS: S1 normal heart sound present, S2 normal heart sound present, no gallops and no murmurs BRUITS: no carotid bruits PERIPHERAL PULSES: Peripheral pulses 2+ throughout Neuro: COMMON NORMALS: patient oriented x3 and no focal motor deficits SENSORIUM/ORIENTATION: Yes alert, Yes oriented to person, Yes oriented to place and Yes oriented to time Psych: APPEARANCE: Yes well kempt MOOD & AFFECT: Yes euthymic mood Data : 03/19/20 03:36 03/19/20 03:36 A&P Assessment and plan (1) Chest pain: CAD risk factor of poorly controlled DM and HLD, non specific T wave changes on EKG, troponin T x 2 negative. -I will plan for exercise MPI in morning for further risk stratification. -continue ASA, statin and NTG as needed. -Normal LV function with no diagnostic RWMA. Unfortunately, instead of exercise MPI he underwent ETT. No symptoms on treadmill and normal EKG response to exercise. DTS=5. -f/u in 4-6 weeks with me in [facility]. In case of recurrence of pain, would potentially benefit from cardiac CTA. -Advised on continued risk factor control and modification. Status: Acute Qualifiers: Chest pain type: unspecified Qualified Code(s): R07.9 - Chest pain, unspecified (2) Borderline hypertension: Status: Resolved (3) Hyperlipidemia: Status: Chronic Qualifiers: Hyperlipidemia type: unspecified Qualified Code(s): E78.5 - Hyperlipidemia, unspecified (4) Diabetes: Status: Chronic Qualifiers: Diabetes mellitus type: type 2 Diabetes mellitus long-term insulin use: with equipment operator intermodal yard use Diabetes mellitus complication status: without complication Qualified Code(s): E11.9 - Type 2 diabetes mellitus without complications; Z79.4 - equipment operator intermodal yard (current) use of insulin Additional A&P Information Thank you for allowing me to participate in patient;s care. Please feel free to call with questions or concerns. Attestations Medical Necessity Statement*: stable to be discharged from cardiac standpoint. 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
== END 2020-03-19 13:44 | disposition home or self-care (01) ==
LOC: ER 10:52 → CSU 14:43
PROVIDERS: Family Medicine; Admitting Provider Family Medicine; Family Provider Electrodiagnostic Medicine; Visit Provider Family Medicine
DX: I20.0 Unstable angina (principal); R03.0 Elevated blood-pressure reading, without diagnosis of hypertension; E78.5 Hyperlipidemia, unspecified; I10 Essential (primary) hypertension; E11.9 Type 2 diabetes mellitus without complications; Z79.4 Long term (current) use of insulin; R07.9 Chest pain, unspecified; Z82.49 Family history of ischemic heart disease and other diseases of the circulatory system
CPT/HCPCS: 12345; 36415; 36416; 71045; 80053; 80061; 82962; 83036; 84443; 84484; 85025; 93005; 93017; 93306; 96360; 96361; 96372; 99283; 99285; G0378; J1650; J1815; J7799

== ENCOUNTER → 2020-05-19 09:59 | Outpatient (BNVA) | payer OTHER, SELFPAY | PROVIDERS: Family Provider Electrodiagnostic Medicine; PCP Family Medicine; Visit Provider Internal Medicine | DX: R50.9 Fever, unspecified (principal); Z20.818 Contact with and (suspected) exposure to other bacterial communicable diseases | CPT/HCPCS: 87635 ==

== ENCOUNTER → 2020-06-17 11:26 | Outpatient (BNVA) | payer OTHER, SELFPAY | PROVIDERS: Family Provider Electrodiagnostic Medicine; PCP Family Medicine; Visit Provider Family Medicine | DX: E11.9 Type 2 diabetes mellitus without complications (principal); Z79.4 Long term (current) use of insulin | CPT/HCPCS: 80053; 83036 ==

== ENCOUNTER → 2020-12-15 13:00 | Outpatient (BNVA) | payer OTHER, SELFPAY | PROVIDERS: Family Provider Electrodiagnostic Medicine; PCP Family Medicine; Visit Provider Family Medicine | DX: E11.9 Type 2 diabetes mellitus without complications (principal); Z79.4 Long term (current) use of insulin; E78.2 Mixed hyperlipidemia; F41.1 Generalized anxiety disorder | CPT/HCPCS: 80053; 83036 ==